=== PATIENT | female | born 1980 | race Caucasian/White ===

== ENCOUNTER 2021-01-20 20:35 | Emergency (ER) | payer OTHER ==
[2021-01-20 20:57] VITALS: BP 133/85; TEMP 98.8; BMI 33.3
[2021-01-20] MEDS ORDERED: CIPROFLOXACIN 0.3% EYE DROPS 5 ML BOTTLE OD ONE (22:32)
[2021-01-20 22:39] VITALS: PULSE 102
[2021-01-21] MEDS ORDERED: DEXAMETHASONE 0.1% OPHTHALMIC SOLN 5 ML BOTTLE AD ONE (22:33)
[2021-01-21] MEDS ORDERED: DEXAMETHASONE 0.1% OPHTHALMIC SOLN 5 ML BOTTLE OU ONE (22:40)
== END 2021-01-20 23:11 | disposition home or self-care (01) ==
LOC: JER 20:35 → JERFT 20:35
DX: H60.91 Unspecified otitis externa, right ear (principal)
CPT/HCPCS: 99283-25

== ENCOUNTER 2021-02-11 12:57 | Emergency (ER) | payer OTHER ==
[2021-02-11 13:25] VITALS: BP 138/39; PULSE 105; TEMP 98; BMI 30.9
[2021-02-11] MEDS ORDERED: NAPROXEN 500 MG TABLET PO ONE (14:12)
[2021-02-11] MEDS ORDERED: METHOCARBAMOL 500 MG TABLET PO ONE (14:12)
[2021-02-11] MEDS ORDERED: NAPROXEN 500 MG TABLET ONE (14:32)
[2021-02-11] MEDS ORDERED: METHOCARBAMOL 500 MG TABLET ONE (14:32)
[2021-02-11 15:11] LABS: PH,URINE 5.5 (5.0-8.0); URINE APPEARANCE CLEAR; URINE BILIRUBIN NEGATIVE (NEGATIVE); URINE COLOR YELLOW; URINE GLUCOSE (UA) NEGATIVE (NEGATIVE); URINE KETONE 1+ (NEGATIVE); URINE LEUK ESTERASE NEGATIVE (NEGATIVE); URINE NITRITE NEGATIVE (NEGATIVE); URINE PROTEIN NEGATIVE (NEGATIVE)
[2021-02-11 15:20] LABS: HCG,QUALITATIVE URINE NEGATIVE
== END 2021-02-11 15:43 | disposition home or self-care (01) ==
LOC: JERFT 12:57
DX: S29.012A Strain of muscle and tendon of back wall of thorax, initial encounter (principal); V49.40XA Driver injured in collision with unspecified motor vehicles in traffic accident, initial encounter
CPT/HCPCS: 72070-TC-FY; 72100-TC-FY; 81003; 84703; 99284-25